=== PATIENT | male | born 1980 | race Caucasian/White ===

== ENCOUNTER 2018-01-05 03:04 | Emergency (ER) | payer OTHER ==
[~2018-01-05] VITALS: Ht 170.2 cm; Wt 85.0 kg
[2018-01-05] VITALS (8 sets, daily range): BP systolic 126–144; BP diastolic 69–85; PULSE 84–108; RESP 12–18; TEMP 98.7; O2SAT 93–97
[2018-01-05 04:06] LABS: BACTERIA, URINE RARE /hpf; BILIRUBIN, URINE NEG (NEG); BLOOD, URINE SMALL (NEG); GLUCOSE,URINE NEG (NEG); KETONE, URINE 10 mg/dL (NEG); MUCUS URINE FEW /lpf (OCC); NITRITE,URINE NEG (NEG); SQUAMOUS EPITHELIAL CELL URINE <1 /hpf (0-5); TRANSITIONAL EPI CELLS, URINE <1 /hpf; URINE COLOR YELLOW (YELLW/STRAW); URINE LEUKOCYTE ESTERASE NEG (NEG)
[2018-01-05 04:27] LABS: AUTOMATED NEUTROPHIL # 23.5 TH/MM3 (1.8-7.7); BASOPHIL % 0.2 % (0.0-2.0); EOSINOPHIL % 0.1 % (0.0-4.0); HEMATOCRIT 50.3 % (39.0-51.0); HEMOGLOBIN 17.6 GM/DL (13.0-17.0); LYMPH % 6.8 % (9.0-44.0); LYMPHOCYTE # 1.8 TH/MM3 (1.0-4.8); MEAN CELL VOLUME 86.3 FL (80.0-100.0); MEAN CORPUSCULAR HEMOGLOBIN 30.2 PG (27.0-34.0); MEAN PLATELET VOLUME 8.3 FL (7.0-11.0); MONO % 5.6 % (0.0-8.0); MONOCYTE # 1.5 TH/MM3 (0-0.9); NEUT % 87.3 % (16.0-70.0); PLATELET COUNT 290 TH/MM3 (150-450); RED BLOOD COUNT 5.84 MIL/MM3 (4.50-5.90); RED CELL DISTRIBUTION WIDTH 14.5 % (11.6-17.2); WHITE BLOOD COUNT 26.8 TH/MM3 (4.0-11.0)
[2018-01-05 04:37] LABS: ALBUMIN 4.6 GM/DL (3.4-5.0); ALKALINE PHOSPHATASE 74 U/L (45-117); ALT (GPT) 41 U/L (12-78); AST (GOT) 17 U/L (15-37); BICARBONATE 23.4 MEQ/L (21.0-32.0); BLOOD UREA NITROGEN 8 MG/DL (7-18); CALCIUM 8.8 MG/DL (8.5-10.1); CHLORIDE 104 MEQ/L (98-107); CREATININE 1.11 MG/DL (0.60-1.30); GLOMERULAR FILTRATION RATE 74 ML/MIN (>89); GLUCOSE,RANDOM 94 MG/DL (74-106); SODIUM (NA) 139 MEQ/L (136-145); TOTAL BILIRUBIN ADULT 0.7 MG/DL (0.2-1.0); TOTAL PROTEIN 9.3 GM/DL (6.4-8.2)
[2018-01-05 04:39] LABS: ACETAMINOPHEN LESS THAN 2.0 MCG/ML (10.0-30.0)
[2018-01-05] MEDS ORDERED: SODIUM CHLOR 0.9% 1000 ML INJ 1,000 ML IV ONE (04:45)
--- NOTE | 2018-01-05 04:56 | PD ---
HPI Chief Complaint: Psychiatric Symptoms Time Seen by Provider: 03:42 Travel History International Travel<30 days: No Contact w/Intl Traveler<30days: No Traveled to known affect area: No History of Present Illness HPI The patient is a 37 year old male who presents to the [facility] emergency department with a history of arriving under a Pruitt act due to reported suicidal ideations. The patient reports that he was in the process of arguing with his when he told her that he would hang himself. She encouraged him to do it according to him. He reports that he has a cord to the ceiling over the stairs with her assistance, however when he began to walk down the stairs as if he was truly going to hang himself she became concerned. The police were called. The patient reports that he has been drinking alcohol this evening. He reports that he has been diagnosed with anxiety in the past, however he has not been under any treatment for the last 4 years. He denies taking any medications. He denies any prior history of suicidal ideations. He reports that he was just mad. 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 On review of systems otherwise, the patient denies having any known recent fevers, cough or congestion, hoarse quality to his voice, neck pain, chest pain, shortness of breath, abdominal pain, vomiting, diarrhea, urinary symptoms, or neurologic symptoms. The patient reports that his tetanus was updated within the last 5 years. [facility] Past Medical History Narrative Medical The patient's past medical history is reportedly none. Hx Anticoagulant Therapy: No Anxiety: Yes Cardiovascular Problems: No Chemotherapy: No Cerebrovascular Accident: No Diabetes: No Respiratory: No Past Surgical History Surgical History: No Previous Surgery Social History Alcohol Use: Yes (3 times per week) Tobacco Use: Yes (1 pack per week) Substance Use: Yes (Marijuana) Allergies-Medications (Allergen,Severity, Reaction): Coded Allergies: No Known Allergies (Unverified , 01/05/18) Reported Meds & Prescriptions Reported Meds & Active Scripts Active No Active Prescriptions or Reported Medications Review of Systems Except as stated in HPI: all other systems reviewed are Neg General / Constitutional: No: Fever Eyes: No: Visual changes HENT: No: Headaches, Neck Stiffness, Neck Pain Cardiovascular: No: Chest Pain or Discomfort Respiratory: No: Shortness of Breath Gastrointestinal: No: Abdominal Pain Genitourinary: No: Dysuria Musculoskeletal: No: Pain Skin: No Rash Neurologic: No: Weakness, Focal Abnormalities, Change in Mentation, Slurred Speech, Sensory Disturbance Psychiatric: Positive: Suicidal Ideations, Mood Disorder, No: Depression, Homicidal Ideation Endocrine: No: Polydipsia Hematologic/Lymphatic: No: Easy Bruising Physical Exam Narrative General: The patient is a well-developed well-nourished male in no acute distress. Head and Neck exam: Head is normocephalic atraumatic. Eyes: EOMI, pupils are equal round and reactive to light. Nose: Midline septum with pink mucous membranes Mouth: Dentition unremarkable. Moist mucus membranes. Posterior oropharynx is not erythematous. No tonsillar hypertrophy. Uvula midline. Airway patent. Neck: No palpable lymphadenopathy. No nuchal rigidity. No thyromegaly. No visible henning on his neck. No swelling or hematoma formation. Cardiovascular: Regular rate and rhythm without murmurs, gallops, or rubs. Lungs: Clear to auscultation bilaterally. No wheezes, rhonchi, or rales. Abdomen: Soft, without tenderness to palpation in all 4 quadrants of the abdomen. No guarding, rebound, or rigidity. Normal bowel sounds are audible. No tenderness on palpation of McBurney's point. Extremities: No clubbing, cyanosis, or edema. 2+ pulses in all 4 extremities. The patient is noted to have an abrasion on his hand. The patient has full range of motion of his hand, wrist, without any crepitus or step-off. No reported bony tenderness on palpation. Back: No spinous process tenderness to palpation. No costovertebral angle tenderness to palpation. Neurologic Exam: Grossly nonfocal. Skin Exam: No rash noted. Intact skin that is warm and dry. Data Data Last Documented VS Vital Signs Date Time Temp Pulse Resp B/P (MAP) Pulse Ox O2 Delivery O2 Flow Rate FiO2 01/05/18 04:57 98 12 131/73 (92) 94 Room Air 01/05/18 03:23 98.7 Orders Orders Complete Blood Count With Diff (01/05/18 03:43) Comprehensive Metabolic Panel (01/05/18 03:43) Thyroid Stimulating Hormone (01/05/18 03:43) Urinalysis - C+S If Indicated (01/05/18 03:43) Psych Screen (01/05/18 03:43) Drug Screen, Random Urine (01/05/18 03:43) Alcohol (Ethanol) (01/05/18 03:43) Salicylates (Aspirin) (01/05/18 03:43) Tylenol (Acetaminophen) (01/05/18 03:43) Chest, Pa & Lat (01/05/18 04:41) Iv Access Insert/Monitor (01/05/18 04:41) Ecg Monitoring (01/05/18 04:41) Oximetry (01/05/18 04:41) Sodium Chlor 0.9% 1000 Ml Inj (Ns 1000 M (01/05/18 04:45) Labs Laboratory Tests Test 01/05/18 03:55 01/05/18 03:57 01/05/18 04:15 Blood Urea Nitrogen 8 MG/DL Creatinine 1.11 MG/DL Random Glucose 94 MG/DL Total Protein 9.3 GM/DL Albumin 4.6 GM/DL Calcium Level 8.8 MG/DL Alkaline Phosphatase 74 U/L Aspartate Amino Transf (AST/SGOT) 17 U/L Alanine Aminotransferase (ALT/SGPT) 41 U/L Total Bilirubin 0.7 MG/DL Sodium Level 139 MEQ/L Potassium Level 4.0 MEQ/L Chloride Level 104 MEQ/L Carbon Dioxide Level 23.4 MEQ/L Anion Gap 12 MEQ/L Estimat Glomerular Filtration Rate 74 ML/MIN Thyroid Stimulating Hormone 3rd Gen 3.330 uIU/ML Salicylates Level 3.7 MG/DL Acetaminophen Level LESS THAN 2.0 MCG/ML Ethyl Alcohol Level 128 MG/DL Urine Color YELLOW Urine Turbidity CLEAR Urine pH 5.0 Urine Specific [place] 1.017 Urine Protein 30 mg/dL Urine Glucose (UA) NEG mg/dL Urine Ketones 10 mg/dL Urine Occult Blood SMALL Urine Nitrite NEG Urine Bilirubin NEG Urine Urobilinogen LESS THAN 2.0 MG/DL Urine Leukocyte Esterase NEG Urine RBC 1 /hpf Urine WBC 1 /hpf Urine Squamous Epithelial Cells <1 /hpf Urine Transitional Epithelial Cells <1 /hpf Urine Bacteria RARE /hpf Urine Granular Casts 25 /lpf Urine Mucus FEW /lpf Microscopic Urinalysis Comment CULT NOT INDICATED Urine Opiates Screen NEG Urine Barbiturates Screen NEG Urine Amphetamines Screen NEG Urine Benzodiazepines Screen NEG Urine Cocaine Screen NEG Urine Cannabinoids Screen POS White Blood Count 26.8 TH/MM3 Red Blood Count 5.84 MIL/MM3 Hemoglobin 17.6 GM/DL Hematocrit 50.3 % Mean Corpuscular Volume 86.3 FL Mean Corpuscular Hemoglobin 30.2 PG Mean Corpuscular Hemoglobin Concent 35.0 % Red Cell Distribution Width 14.5 % Platelet Count 290 TH/MM3 Mean Platelet Volume 8.3 FL Neutrophils (%) (Auto) 87.3 % Lymphocytes (%) (Auto) 6.8 % Monocytes (%) (Auto) 5.6 % Eosinophils (%) (Auto) 0.1 % Basophils (%) (Auto) 0.2 % Neutrophils # (Auto) 23.5 TH/MM3 Lymphocytes # (Auto) 1.8 TH/MM3 Monocytes # (Auto) 1.5 TH/MM3 Eosinophils # (Auto) 0.0 TH/MM3 Basophils # (Auto) 0.0 TH/MM3 CBC Comment DIFF FINAL Differential Comment MDM Medical Decision Making Medical Screen Exam Complete: Yes Emergency Medical Condition: Yes Medical Record Reviewed: Yes Differential Diagnosis Suicidal ideations, versus suicidal gesture, versus depression, versus anxiety disorder Narrative Course During the course of the patient's emergency department visit, the patient's history, examination, and differential diagnosis were reviewed with the patient. The patient was placed on a reconsignment clerk with oximetry and frequent blood pressure monitoring. The patient had IV access obtained and blood work sent for analysis. The patient was initially provided normal saline 1 L IV fluid bolus The patient's laboratory studies were reviewed and remarkable for a white count of 26.8, hemoglobin 17.6 suggestive of concentration, platelets 290 with neutrophils 87.3, lymphocytes 6.8. CMP is remarkable for GFR of 74, total protein 9.3, TSH within normal limits, urine drug screen positive for cannabinoids, acetaminophen less than 2, salicylate 3.7, alcohol 128, urinalysis shows 30 glucose 10 ketones small occult blood, 1 RBC, rare bacteria , culture not indicated. Given the patient's leukocytosis the patient had a chest x-ray added onto his laboratory studies to rule out an occult pneumonia. Radiology studies were reviewed and remarkable for a chest x-ray that shows no acute cardiopulmonary disease. The patient has been medically cleared for evaluation by the psychiatric screener and psychiatrist under a Pruitt act. Diagnosis Primary Impression: Suicidal behavior Qualified Codes: T14.91XA - Suicide attempt, initial encounter Scripts No Active Prescriptions or Reported Meds Lesa Godfrey MD January 05, 2018 04:56
--- NOTE | 2018-01-05 05:17 | RADRPT ---
EXAM DATE/TIME: 01/05/2018 04:55 [place] COMPARISON: No previous studies available for comparison. INDICATIONS : Shortness of breath. MEDICAL HISTORY : None. SURGICAL HISTORY : None. ENCOUNTER: Initial ACUITY: 1 day PAIN SCORE: 0/10 LOCATION: Bilateral chest FINDINGS: PA and lateral views of the chest demonstrate the lungs to be symmetrically aerated without evidence of mass, infiltrate or effusion. The cardiomediastinal contours are unremarkable. Osseous structure s are intact. CONCLUSION: No acute disease. Niraj Gomes MD on January 05, 2018 at 5:14 Board Certified Radiologist. This report was verified electronically.
--- NOTE | 2018-01-05 14:15 | PD ---
Physical Exam Time Seen by Provider: 14:13 JEFF Harvey has evaluated patient, lifted Pruitt act and cleared the patient for discharge. Data Data Last Documented VS Vital Signs Date Time Temp Pulse Resp B/P (MAP) Pulse Ox O2 Delivery O2 Flow Rate FiO2 01/05/18 12:17 96 16 139/82 (101) 97 Room Air 01/05/18 03:23 98.7 Orders Orders Complete Blood Count With Diff (01/05/18 03:43) Comprehensive Metabolic Panel (01/05/18 03:43) Thyroid Stimulating Hormone (01/05/18 03:43) Urinalysis - C+S If Indicated (01/05/18 03:43) Psych Screen (01/05/18 03:43) Drug Screen, Random Urine (01/05/18 03:43) Alcohol (Ethanol) (01/05/18 03:43) Salicylates (Aspirin) (01/05/18 03:43) Tylenol (Acetaminophen) (01/05/18 03:43) Chest, Pa & Lat (01/05/18 04:41) Iv Access Insert/Monitor (01/05/18 04:41) Ecg Monitoring (01/05/18 04:41) Oximetry (01/05/18 04:41) Sodium Chlor 0.9% 1000 Ml Inj (Ns 1000 M (01/05/18 04:45) Diet Regular Basic (01/05/18 Breakfast) Diet Regular Basic (01/05/18 Lunch) Labs Laboratory Tests Test 01/05/18 03:55 01/05/18 03:57 01/05/18 04:15 Blood Urea Nitrogen 8 MG/DL Creatinine 1.11 MG/DL Random Glucose 94 MG/DL Total Protein 9.3 GM/DL Albumin 4.6 GM/DL Calcium Level 8.8 MG/DL Alkaline Phosphatase 74 U/L Aspartate Amino Transf (AST/SGOT) 17 U/L Alanine Aminotransferase (ALT/SGPT) 41 U/L Total Bilirubin 0.7 MG/DL Sodium Level 139 MEQ/L Potassium Level 4.0 MEQ/L Chloride Level 104 MEQ/L Carbon Dioxide Level 23.4 MEQ/L Anion Gap 12 MEQ/L Estimat Glomerular Filtration Rate 74 ML/MIN Thyroid Stimulating Hormone 3rd Gen 3.330 uIU/ML Salicylates Level 3.7 MG/DL Acetaminophen Level LESS THAN 2.0 MCG/ML Ethyl Alcohol Level 128 MG/DL Urine Color YELLOW Urine Turbidity CLEAR Urine pH 5.0 Urine Specific [place] 1.017 Urine Protein 30 mg/dL Urine Glucose (UA) NEG mg/dL Urine Ketones 10 mg/dL Urine Occult Blood SMALL Urine Nitrite NEG Urine Bilirubin NEG Urine Urobilinogen LESS THAN 2.0 MG/DL Urine Leukocyte Esterase NEG Urine RBC 1 /hpf Urine WBC 1 /hpf Urine Squamous Epithelial Cells <1 /hpf Urine Transitional Epithelial Cells <1 /hpf Urine Bacteria RARE /hpf Urine Granular Casts 25 /lpf Urine Mucus FEW /lpf Microscopic Urinalysis Comment CULT NOT INDICATED Urine Opiates Screen NEG Urine Barbiturates Screen NEG Urine Amphetamines Screen NEG Urine Benzodiazepines Screen NEG Urine Cocaine Screen NEG Urine Cannabinoids Screen POS White Blood Count 26.8 TH/MM3 Red Blood Count 5.84 MIL/MM3 Hemoglobin 17.6 GM/DL Hematocrit 50.3 % Mean Corpuscular Volume 86.3 FL Mean Corpuscular Hemoglobin 30.2 PG Mean Corpuscular Hemoglobin Concent 35.0 % Red Cell Distribution Width 14.5 % Platelet Count 290 TH/MM3 Mean Platelet Volume 8.3 FL Neutrophils (%) (Auto) 87.3 % Lymphocytes (%) (Auto) 6.8 % Monocytes (%) (Auto) 5.6 % Eosinophils (%) (Auto) 0.1 % Basophils (%) (Auto) 0.2 % Neutrophils # (Auto) 23.5 TH/MM3 Lymphocytes # (Auto) 1.8 TH/MM3 Monocytes # (Auto) 1.5 TH/MM3 Eosinophils # (Auto) 0.0 TH/MM3 Basophils # (Auto) 0.0 TH/MM3 CBC Comment DIFF FINAL Differential Comment [facility] Supervised Visit with KRISTIAN: No Narrative Course JEFF Caldwell has evaluated patient, lifted Pruitt act and cleared the patient for discharge. Patient contracts safety. Denies suicidal or homicidal ideations. Patient will be provided community resource packet to [facility] for follow-up. Has friends and family for support. Patient was medically cleared by alternate provider prior to psych screening. Patient has been evaluated by psychiatry and and is now cleared for discharge. Diagnosis Primary Impression: Alcohol intoxication Qualified Codes: F10.920 - Alcohol use, unspecified with intoxication, uncomplicated Additional Impression: Adjustment disorder Qualified Codes: F43.20 - Adjustment disorder, unspecified Referrals: [facility] (Out patient) [facility] Primary Care Physician Psychiatrist Toya GABRI[facility] Patient Instructions: Abuse of Alcohol (ED), Alcohol Dependence (ED), Alcohol Intoxication (ED), General Instructions, Mood Disorders (ED) Additional Instruction: Contract safety to your self and others Follow-up with psychiatry Follow-up with primary care provider Follow-up with Hakan Vann/[facility] Return to the emergency department immediately with worsening of symptoms Med/Other Pt SpecificInfo: No Change to Meds, No Meds Exist/No RX given Scripts No Active Prescriptions or Reported Meds Disposition: 01 DISCHARGE HOME Condition: Stable Eva Franklin January 05, 2018 14:15
--- NOTE | 2018-01-05 14:33 | PD ---
History of Present Illness Chief Complaint: Psychiatric Symptoms Time Seen by Provider: 13:40 Travel History International Travel<30 Days: No Contact w/Intl Traveler<30days: No Known affected area: No Legal Status Legal Status: Pruitt Act Pruitt Act Signed By: Cristofer Cardoso History of Present Illness: History of Present Illness HPI The patient is a 37 year old, , male with reported history of anxiety disorder who presents to the [facility] emergency department under a Pruitt act initiated by law enforcement. The Pruitt act report alleges that the patient was arguing with his and that during the argument he attempted to hang himself. The patient also had been drinking prior to the alleged incident and presented with blood alcohol level of 128. EMR is reviewed. No previous contact with [facility] psychiatry. Remainder of labs are not significant. Patient was monitor in control environment and he presented no behavioral concerns and no suicidality. Patient is seen in J pod. Patient was calm and cooperative. Patient reports that he had been involved in an argument with his that had started earlier in the day. He at one point told his something to the effect of " you want me to hang myself?" To which she answered" go ahead if you want to". He reports that he then proceeded to place his head over a wire that had previously been hanging over their garage. He states that he tripped and fell to the floor. He denies that this was a suicidal attempt and that he was just trying to get a reaction out of her. He continues to deny any suicidal or homicidal ideation, intent or plan. He states "I care for myself, I love my family and my children. We were arguing and I did it right in front of her to get a reaction out of her." I contacted the patient's Bri at [phone]. The states that that they were in fact arguing and that he had been drinking since 10:00 in the morning. She does state that he appeared to attempt to hang himself to get a reaction out of her. She said "I cannot believe he tried to hang himself". She voices no concern for his safety as she does not feel that he is suicidal. And she agrees to pick him up from the hospital if he is discharged. I discussed with her general safety plan including returning to the ED if any changes or concerns. PFSH Past Medical History Hx Anticoagulant Therapy: No Anxiety: Yes Cardiovascular Problems: No Chemotherapy: No Cerebrovascular Accident: No Diabetes: No Respiratory: No Past Surgical History Surgical History: No Previous Surgery Psychiatric History Psychiatric History Hx Psychiatric Treatment: Patient has been receiving counseling for the past 4 years. No previous suicide attempts. No history of self-injurious behavior. Has never taken any psychiatric medication. History of Inpatient Treatment: No Guns or firearms in home: No Social History Patient has been for the past 13 years. 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 Hx Alcohol Use: Yes (3 times per week) Hx Tobacco Use: Yes (1 pack per week) Hx Substance Use: Yes (Marijuana) Substance Use Type: Alcohol Other Substances Used: BAL on arrival is 128. He denies that he drinks on a daily basis Hx of Substance Use Treatment: No Family Psychiatric History Mother with history of anxiety Allergies-Medications (Allergen,Severity, Reaction): Coded Allergies: No Known Allergies (Unverified , 01/05/18) Reported Meds & Prescriptions Reported Meds & Active Scripts Active No Active Prescriptions or Reported Medications Review of Systems Psychiatric: COMPLAINS OF: Anxiety Except as stated in HPI: all other systems reviewed are Neg Mental Status Examination Appearance: Appropriate (Dressed in hospital [facility] and maintaining basic hygiene) Consciousness: Alert Orientation: x4 Motor Activity: Normal gait Speech: Unremarkable Language: Adequate Fund of Knowledge: Adequate Attention and Concentration: Adequate Memory: Unremarkable Mood: Appropriate, Anxious Affect: Appropriate Thought Process & Associations: Intact, Logical, Goal directed Thought Content: Appropriate Hallucination Type: None Delusion Type: None Suicidal Ideation: No Suicidal Plan: No Suicidal Intention: No Homicidal Ideation: No Homicidal Plan: No Homicidal Intention: No Insight: Fair Judgment: Impulsive MDM Medical Decision Making Medical Record Reviewed: Yes Assessment/Plan The patient is a 37 year old, , male with reported history of anxiety disorder who presents to the [facility] emergency department under a Pruitt act initiated by law enforcement. The Pruitt act report alleges that the patient was arguing with his and that during the argument he attempted to hang himself. The patient also had been drinking prior to the alleged incident and presented with blood alcohol level of 128. EMR is reviewed. No previous contact with [facility] psychiatry. Remainder of labs are not significant. Patient was monitor in control environment and he presented no behavioral concerns and no suicidality. He is cognitively intact. Presents no evidence of unstable mental illness as defined under the Pruitt act. He is future oriented with adequate protective factors. He agrees to continue to follow up with his outpatient therapist. He is also interested in being evaluated for medications in the future. I have spoken with his who has no concerns if he is discharged. The patient is encouraged to abstain from alcohol as well as a general safety plan. At this time the Pruitt act is lifted. Psychiatrically clear for discharge from the ED. Orders Orders Complete Blood Count With Diff (01/05/18 03:43) Comprehensive Metabolic Panel (01/05/18 03:43) Thyroid Stimulating Hormone (01/05/18 03:43) Urinalysis - C+S If Indicated (01/05/18 03:43) Psych Screen (01/05/18 03:43) Drug Screen, Random Urine (01/05/18 03:43) Alcohol (Ethanol) (01/05/18 03:43) Salicylates (Aspirin) (01/05/18 03:43) Tylenol (Acetaminophen) (01/05/18 03:43) Chest, Pa & Lat (01/05/18 04:41) Iv Access Insert/Monitor (01/05/18 04:41) Ecg Monitoring (01/05/18 04:41) Oximetry (01/05/18 04:41) Sodium Chlor 0.9% 1000 Ml Inj (Ns 1000 M (01/05/18 04:45) Diet Regular Basic (01/05/18 Breakfast) Diet Regular Basic (01/05/18 Lunch) Ed Discharge Order (01/05/18 14:15) Results Vital Signs Date Time Temp Pulse Resp B/P (MAP) Pulse Ox O2 Delivery O2 Flow Rate FiO2 01/05/18 12:17 96 16 139/82 (101) 97 Room Air 01/05/18 11:12 84 16 130/85 (100) 97 Room Air 01/05/18 10:00 92 18 144/79 (100) 97 Room Air 01/05/18 05:52 87 15 126/69 (88) 93 Room Air 01/05/18 04:57 98 12 131/73 (92) 94 Room Air 01/05/18 04:47 12 95 Room Air 01/05/18 03:39 101 12 135/79 (97) 94 Room Air 01/05/18 03:23 98.7 108 16 143/85 (104) Laboratory Tests Test 01/05/18 03:55 01/05/18 03:57 01/05/18 04:15 Blood Urea Nitrogen 8 Creatinine 1.11 Random Glucose 94 Total Protein 9.3 Albumin 4.6 Calcium Level 8.8 Alkaline Phosphatase 74 Aspartate Amino Transf (AST/SGOT) 17 Alanine Aminotransferase (ALT/SGPT) 41 Total Bilirubin 0.7 Sodium Level 139 Potassium Level 4.0 Chloride Level 104 Carbon Dioxide Level 23.4 Anion Gap 12 Estimat Glomerular Filtration Rate 74 Thyroid Stimulating Hormone 3rd Gen 3.330 Salicylates Level 3.7 Acetaminophen Level LESS THAN 2.0 Ethyl Alcohol Level 128 Urine Color YELLOW Urine Turbidity CLEAR Urine pH 5.0 Urine Specific [place] 1.017 Urine Protein 30 Urine Glucose (UA) NEG Urine Ketones 10 Urine Occult Blood SMALL Urine Nitrite NEG Urine Bilirubin NEG Urine Urobilinogen LESS THAN 2.0 Urine Leukocyte Esterase NEG Urine RBC 1 Urine WBC 1 Urine Squamous Epithelial Cells <1 Urine Transitional Epithelial Cells <1 Urine Bacteria RARE Urine Granular Casts 25 Urine Mucus FEW Microscopic Urinalysis Comment CULT NOT INDICATED Urine Opiates Screen NEG Urine Barbiturates Screen NEG Urine Amphetamines Screen NEG Urine Benzodiazepines Screen NEG Urine Cocaine Screen NEG Urine Cannabinoids Screen POS White Blood Count 26.8 Red Blood Count 5.84 Hemoglobin 17.6 Hematocrit 50.3 Mean Corpuscular Volume 86.3 Mean Corpuscular Hemoglobin 30.2 Mean Corpuscular Hemoglobin Concent 35.0 Red Cell Distribution Width 14.5 Platelet Count 290 Mean Platelet Volume 8.3 Neutrophils (%) (Auto) 87.3 Lymphocytes (%) (Auto) 6.8 Monocytes (%) (Auto) 5.6 Eosinophils (%) (Auto) 0.1 Basophils (%) (Auto) 0.2 Neutrophils # (Auto) 23.5 Lymphocytes # (Auto) 1.8 Monocytes # (Auto) 1.5 Eosinophils # (Auto) 0.0 Basophils # (Auto) 0.0 CBC Comment DIFF FINAL Differential Comment Diagnosis Primary Impression: Alcohol intoxication Additional Impression: Adjustment disorder Psychiatrically Cleared: Yes Referrals: [facility] (Out patient) [facility] Primary Care Physician Psychiatrist Toya GABRIEL Behavior[facility] Departure Forms: Tests/Procedures Patient Instructions: General Instructions, Mood Disorders (ED), Alcohol Intoxication (ED), Abuse of Alcohol (ED), Alcohol Dependence (ED) Additional Instructions: Contract safety to your self and others Follow-up with psychiatry Follow-up with primary care provider Follow-up with Hakan Chase Return to the emergency department immediately with worsening of symptoms Med/ Other Pt Specific Info: No Meds Exist/No RX given Prescriptions No Active Prescriptions or Reported Meds Disposition: 01 DISCHARGE HOME Condition: Stable Problem Qualifiers Primary Impression: Alcohol intoxication Qualified Codes: F10.920 - Alcohol use, unspecified with intoxication, uncomplicated Additional Impression: Adjustment disorder Qualified Codes: F43.22 - Adjustment disorder with anxiety Paulette Gonsalez January 05, 2018 14:33
== END 2018-01-05 15:00 | disposition home or self-care (01) ==
LOC: NEPD 03:04 → NEPJ 15:00
DX: F10.920 Alcohol use, unspecified with intoxication, uncomplicated (principal); F43.22 Adjustment disorder with anxiety; F12.90 Cannabis use, unspecified, uncomplicated; F17.200 Nicotine dependence, unspecified, uncomplicated; R06.02 Shortness of breath; Y90.6 Blood alcohol level of 120-199 mg/100 ml
CPT/HCPCS: 71046; 80053; 80307; 81001; 84443; 85025; 96360; 96361; 99284; J7030